=== PATIENT | male | born 1960 | race Hispanic/Latino ===

== ENCOUNTER 2017-10-01 16:52 | Inpatient (IN) | payer MEDICARE ==
[~2017-10-01] VITALS: Ht 165.1 cm; Wt 45.1 kg
[~2017-10-01 16:52] MED LIST: ACET1TAB12 PO; BISM525O75 PO; CALCIUM PO; CEPH500B PO; CLIN300C9 PO; DOCU100C19 PO; DULA0.75 SQ; FOLI0.8T2 PO; FOLI0.8T22 PO; GENTLESORB IRON PO; LACT1CAP72 PO; LISI-613 PO; OMEP20CA10 PO; ONDA4TAB9 PO; PREG75 PO; PROP10TA10 PO; SEVE800T7 PO; SIMV5TAB6 PO
[2017-10-01] MEDS ORDERED: CEFEPIME HCL 1 GM VIAL ONE (18:23)
[2017-10-01] MEDS ORDERED: ACETAMINOPHEN 325 MG TAB ONE (18:23)
[2017-10-01] MEDS ORDERED: SODIUM CHLORIDE 0.9% 50 ML IV ONE (18:24)
[2017-10-01 18:27] LABS: HEMATOCRIT 35.5 % (42-54); MEAN CORPUSCULAR HEMOGLOBIN 31.8 pg (27.0-33.0); MEAN CORPUSCULAR HGB CONC 32.1 g/dL (32.0-36.0); PLATELET COUNT (AUTO) 68 K/uL (130-400); RED BLOOD CELL COUNT(AUTO) 3.59 MIL/uL (4.50-6.20)
[2017-10-01 18:40] LABS: CREATININE 7.6 mg/dL (0.5-1.5); POTASSIUM 5.2 mmol/L (3.5-5.1)
[2017-10-01 18:46] LABS: ALBUMIN 3.3 g/dL (3.5-5.0); BILIRUBIN,DIRECT 0.2 mg/dL (0.0-0.3); BILIRUBIN,TOTAL 0.6 mg/dL (0.2-1.0); TOTAL PROTEIN, SERUM 7.5 g/dL (6.0-8.3)
[2017-10-01 19:18] LABS: EOSINOPHILS % (MANUAL) 3 % (1-6); LYMPHOCYTES % (MANUAL) 13 % (22-44); MAN.DIFF COMMENT-IMPRESSION MANUAL DIFFERENTIAL; MONOCYTES % (MANUAL) 8 % (2-9); SEGMENTED NEUTROPHILS % 76 % (40-70)
[2017-10-01] MEDS ORDERED: VANCOMYCIN 1GM+NS 250ML 250 ML IV ONE (19:23)
[2017-10-01 21:28] VITALS: BP 145/69
[2017-10-01] MEDS ORDERED: SODIUM CHLORIDE 0.9% 10 ML VIAL IVP PRN (21:30)
[2017-10-01 23:26] VITALS: BP 151/75
[2017-10-02 03:00] VITALS: BP 141/70
[2017-10-02 05:24] LABS: HEMATOCRIT 35.8 % (42-54); MEAN CORPUSCULAR HEMOGLOBIN 32.2 pg (27.0-33.0); MEAN CORPUSCULAR HGB CONC 32.6 g/dL (32.0-36.0); MEAN CORPUSCULAR VOLUME 98.5 fL (79-99); NUCLEATED RED BLOOD CELLS 0.1 % (0.0-0.19); PLATELET COUNT (AUTO) 75 K/uL (130-400); RED BLOOD CELL COUNT(AUTO) 3.64 MIL/uL (4.50-6.20); RED CELL DISTRIBUTION WIDTH 18.2 % (11.0-15.5); WHITE BLOOD COUNT (AUTO) 4.2 K/uL (4.8-10.8)
[2017-10-02 05:40] LABS: POTASSIUM 5.1 mmol/L (3.5-5.1)
[2017-10-02 05:58] LABS: CREATININE 8.2 mg/dL (0.5-1.5)
[2017-10-02] MEDS ORDERED: CEFEPIME HCL 1 GM VIAL ONE (06:22)
[2017-10-02 08:00] VITALS: BP 142/77
[2017-10-02] MEDS ORDERED: CLON0.3T PO (08:32)
[2017-10-02] MEDS ORDERED: HYDR-4153 PO (08:32)
[2017-10-02] MEDS ORDERED: FAMO-136 PO (08:32)
[2017-10-02] MEDS ORDERED: AMLO5TAB2 PO (08:32)
[2017-10-02] MEDS ORDERED: PRAV10TA39 PO (08:32)
[2017-10-02] MEDS ORDERED: CITA10TA7 PO (08:32)
[2017-10-02] MEDS ORDERED: SERT50TA PO (08:32)
[2017-10-02 12:00] VITALS: BP 126/68
[2017-10-02] MEDS ORDERED: SODIUM CHLORIDE 0.9% 1000ML 1,000 ML IV PRN (13:15)
[2017-10-02] MEDS ORDERED: 0.9% SODIUM CHLORIDE 250 ML IV BAG IV PRN (13:15)
[2017-10-02] MEDS ORDERED: ALBUMIN (HUMAN) 25% 100 ML IV PRN (13:15)
[2017-10-02] MEDS: PROPRANOLOL HCL 10 MG TAB PO SCH ×2 (14:18→21:25)
[2017-10-02 16:00] VITALS: BP 177/86
[2017-10-02] MEDS: SEVELAMER HCL 800 MG TABLET PO SCH (16:51)
[2017-10-02 19:14] VITALS: BP 158/80
[2017-10-02] MEDS ORDERED: FAMOTIDINE 20MG TAB 20 MG TAB PO SCH (21:00)
[2017-10-02] MEDS: PANTOPRAZOLE SODIUM 40 MG TABLET.DR PO SCH (21:25)
[2017-10-02 23:11] VITALS: BP 176/81
[2017-10-03] VITALS (9 sets, daily range): BP systolic 147–170; BP diastolic 70–81
[2017-10-03] MEDS ORDERED: DEXTROSE 50%-WATER 50 ML DISP.SYRIN IV PRN (04:15)
[2017-10-03] MEDS ORDERED: GLUCAGON 1MG KIT 1 MG ML IM PRN (04:15)
[2017-10-03 05:38] LABS: HEMATOCRIT 38.1 % (42-54); MEAN CORPUSCULAR HEMOGLOBIN 32.3 pg (27.0-33.0); MEAN CORPUSCULAR HGB CONC 32.9 g/dL (32.0-36.0); MEAN CORPUSCULAR VOLUME 98.3 fL (79-99); NUCLEATED RED BLOOD CELLS 0.2 % (0.0-0.19); PLATELET COUNT (AUTO) 71 K/uL (130-400); RED BLOOD CELL COUNT(AUTO) 3.88 MIL/uL (4.50-6.20); RED CELL DISTRIBUTION WIDTH 18.2 % (11.0-15.5); WHITE BLOOD COUNT (AUTO) 4.3 K/uL (4.8-10.8)
[2017-10-03 05:52] LABS: CREATININE 6.5 mg/dL (0.5-1.5); POTASSIUM 4.6 mmol/L (3.5-5.1)
[2017-10-03] MEDS ORDERED: INSULIN HUMULIN R 100 UNIT/ML 3ML SQ SCH (07:30)
[2017-10-03] MEDS: PROPRANOLOL HCL 10 MG TAB PO SCH ×3 (07:46→21:11)
[2017-10-03] MEDS: SEVELAMER HCL 800 MG TABLET PO SCH ×3 (07:46→16:33)
[2017-10-03] MEDS: PANTOPRAZOLE SODIUM 40 MG TABLET.DR PO SCH ×2 (07:46→21:11)
[2017-10-03] MEDS: CITALOPRAM 20 MG TABLET PO SCH (07:56)
[2017-10-03] MEDS: LISINOPRIL 20 MG TABLET PO SCH (07:56)
[2017-10-03] MEDS: FOLIC ACID/VITAMIN B COMP W-C 1 MG CAPSULE PO SCH ×3 (08:56→21:11)
[2017-10-03] MEDS: **HM** PRAVASTATIN 10MG PO SCH (08:56)
[2017-10-03] MEDS: AMLODIPINE BESYLATE 5 MG TAB PO SCH (08:56)
[2017-10-03] MEDS: ACETAMINOPHEN-CODEINE 300/30MG TAB PO PRN ×2 (15:01→21:11)
[2017-10-03] MEDS ORDERED: ONDANSETRON HCL MDV 20ML 2 MG/ML VIAL IVP PRN (21:30)
[2017-10-04] MEDS ORDERED: GUAIFENESIN-DM 200/20 MG 10 ML PO PRN (01:30)
[2017-10-04] MEDS ORDERED: CLONIDINE HCL 0.1 MG TABLET PO PRN (01:30)
[2017-10-04] MEDS ORDERED: DIPHENHYDRAMINE HCL 25 MG CAPSULE PO PRN (01:30)
[2017-10-04] MEDS ORDERED: ZOLPIDEM TARTRATE 5 MG TAB PO PRN (01:30)
[2017-10-04] MEDS ORDERED: NITROGLYCERIN 0.4 MG SL TAB SL PRN (01:30)
[2017-10-04] MEDS ORDERED: ACETAMINOPHEN 325 MG TAB PO PRN (01:30)
[2017-10-04] MEDS ORDERED: ONDANSETRON HCL MDV 20ML 2 MG/ML VIAL IVP PRN (01:45)
[2017-10-04] MEDS ORDERED: VANCOMYCIN PROTOCOL PER PHARMACY IV SCH (01:45)
[2017-10-04] MEDS ORDERED: PHARMACY COMMUNICATION MISC SCH (01:45)
[2017-10-04] MEDS ORDERED: CEFEPIME 1GM+NS 50ML 50 ML IV SCH (03:00)
[2017-10-04] MEDS ORDERED: CEFEPIME HCL 1 GM VIAL ONE (03:16)
[2017-10-04 03:17] VITALS: BP 144/71
[2017-10-04 03:20] VITALS: BP 126/68
[2017-10-04 03:22] VITALS: BP 115/65
[2017-10-04] MEDS ORDERED: COMPOUND IV REFRIGERATED 1 EACH IVSOLN MISC PRN (06:45)
[2017-10-04] MEDS ORDERED: VANCOMYCIN 750MG + NS 250 ML IV SCH ×2 (06:45)
[2017-10-04 07:53] VITALS: BP 152/71
[2017-10-04] MEDS: ONDANSETRON 4 MG TABLET PO SCH ×2 (08:15→17:13)
[2017-10-04] MEDS: LISINOPRIL 20 MG TABLET PO SCH (08:29)
[2017-10-04] MEDS: CITALOPRAM 20 MG TABLET PO SCH (08:29)
[2017-10-04] MEDS: AMLODIPINE BESYLATE 5 MG TAB PO SCH (08:29)
[2017-10-04] MEDS: FOLIC ACID/VITAMIN B COMP W-C 1 MG CAPSULE PO SCH ×2 (08:29→14:50)
[2017-10-04] MEDS: PANTOPRAZOLE SODIUM 40 MG TABLET.DR PO SCH (08:29)
[2017-10-04] MEDS: PROPRANOLOL HCL 10 MG TAB PO SCH ×2 (08:29→14:50)
[2017-10-04] MEDS: SEVELAMER HCL 800 MG TABLET PO SCH ×3 (08:29→17:12)
[2017-10-04] MEDS: **HM** PRAVASTATIN 10MG PO SCH (08:36)
[2017-10-04] MEDS ORDERED: FAMOTIDINE 20MG TAB 20 MG TAB PO SCH (09:00)
[2017-10-04] MEDS ORDERED: ONDANSETRON HCL 4 MG/2 ML VIAL IVP PRN (12:00)
[2017-10-04 12:24] VITALS: BP 150/71
[2017-10-04] MEDS ORDERED: CEFEPIME HCL 1 GM VIAL IVP SCH (15:00)
[2017-10-04 17:04] VITALS: BP 158/76
[2017-10-05] MEDS ORDERED: VANCOMYCIN 1GM+NS 250ML 250 ML IV SCH (14:00)
== END 2017-10-04 19:45 | DRG 871 ==
LOC: EDH 16:52 → EDHIP 16:53 → OBSVTOIN 16:53 → 3CH 20:12
PROVIDERS: ADMIT Internal Medicine; ATTEND Internal Medicine
PROC: 5A1D70Z Performance of Urinary Filtration, Intermittent, Less than 6 Hours Per Day (ICD-10-PCS; principal; 2017-10-02)
DX: A41.9 Sepsis, unspecified organism (principal); N18.6 End stage renal disease; I12.0 Hypertensive chronic kidney disease with stage 5 chronic kidney disease or end stage renal disease; D64.9 Anemia, unspecified; E11.22 Type 2 diabetes mellitus with diabetic chronic kidney disease; E78.5 Hyperlipidemia, unspecified; I95.1 Orthostatic hypotension; K74.60 Unspecified cirrhosis of liver; Z99.2 Dependence on renal dialysis; F03.90 Unspecified dementia, unspecified severity, without behavioral disturbance, psychotic disturbance, mood disturbance, and anxiety; K21.9 Gastro-esophageal reflux disease without esophagitis
CPT/HCPCS: 36415; 71045; 80048; 80053; 80076; 82948; 85025; 85027; 87040; 87088; 90935; A4218; J0692; J2405; J3370; Q0162

== ENCOUNTER 2019-10-13 13:02 | Inpatient (IN) | payer MEDICARE ==
[~2019-10-13] VITALS: Ht 162.6 cm; Wt 43.5 kg
[2019-10-13] MEDS ORDERED: EPINEPHRINE 0.1 MG/ML 10 ML SYG IVP ONE (15:14)
[2019-10-13] MEDS ORDERED: AMIODARONE HCL 50 MG/ML 3 ML VIAL IVP ONE (15:14)
[2019-10-13] MEDS ORDERED: LIDOCAINE 2G/250ML 250 ML IV ONE (15:14)
[2019-10-13] MEDS ORDERED: NOREPINEPHRINE BITARTRATE 1 MG/1 ML ML IV ONE (15:14)
[2019-10-13] MEDS ORDERED: ONDANSETRON HCL 4 MG/2 ML VIAL ONE ×2 (17:01→19:11)
[2019-10-13] MEDS ORDERED: CEFTRIAXONE SODIUM 1 GM ONE (17:01)
[2019-10-13] MEDS ORDERED: SODIUM CHLORIDE 0.9% 50 ML IV ONE (17:03)
[2019-10-13] MEDS ORDERED: SODIUM BICARB 50MEQ 50ML VIAL IV SCH (18:00)
[2019-10-13 18:10] VITALS: PULSE 77; RESP 18
[2019-10-13] MEDS ORDERED: SODIUM BICARB 50MEQ 50ML VIAL ONE (18:17)
[2019-10-14 02:55] VITALS: PULSE 74; RESP 18
[2019-10-14 07:44] VITALS: PULSE 77; RESP 20
[2019-10-14] MEDS ORDERED: CLONIDINE HCL 0.3 MG TABLET PO PRN (10:15)
[2019-10-14] MEDS ORDERED: DOCUSATE SODIUM 100 MG CAP PO PRN (10:15)
[2019-10-14] MEDS: ONDANSETRON 4 MG TABLET PO SCH (10:15)
[2019-10-14] MEDS ORDERED: ZOLPIDEM TARTRATE 5 MG TAB PO PRN (10:30)
[2019-10-14] MEDS ORDERED: HYDRALAZINE HCL 20 MG/ML VIAL IV PRN (10:30)
[2019-10-14] MEDS ORDERED: BISMUTH SUBSALICYLATE 525 MG/15 ML ML PO PRN (10:30)
[2019-10-14] MEDS: CALCIUM ACETATE 667 MG CAPSULE PO SCH (12:00)
[2019-10-14] MEDS: SEVELAMER HCL 800 MG TABLET PO SCH (12:00)
[2019-10-14] MEDS ORDERED: HYDRALAZINE HCL 20 MG/ML VIAL ONE (12:02)
[2019-10-14] MEDS ORDERED: ONDANSETRON HCL 4 MG/2 ML VIAL ONE (12:21)
[2019-10-14] MEDS ORDERED: NON-FORMULARY MEDICATION 1 EACH (Folic Acid/Vitamin B Comp W-C (Rena-Vite Tablet) 0.8 MG) PO SCH (14:00)
[2019-10-14] MEDS: PROPRANOLOL HCL 10 MG TAB PO SCH ×2 (14:00→21:00)
[2019-10-14] MEDS: CEFEPIME HCL 1 GM VIAL IVP SCH (14:15)
[2019-10-14] MEDS: DEXAMETHASONE SOD PHOSPHATE 4 MG/ML 1ML VIAL IVP SCH (14:15)
--- NOTE | 2019-10-14 14:58 | NUR ---
INITIAL SW spoke with patient's daughter, Mora Sims, [phone]. Patient lives with daughter and grandkids. He has no home health but does have PH[facility] with [facility] X 37 hours a week. Daughter is provider. DME: walker, shower chair, wheelchair, hospital bed, glucometer (uses insulin), O2 concentrator/portable. O2 is thru [facility]. Patient needs help with ADL's and doesn't drive. PCP is Dr. Francisco Javier Shaw. Pharmacy is [facility] in [place]. DCP is home. Patient's daughter stated that she is waiting to be tested for COVID 19 because she works with another patient who had family members who were positive for the virus. Patient's daughter states she and her 7 year old daughter are experiencing symptoms. Addendum: 10/14/19 at 1503 by LEANDRA IYER SS Amended: Links added.
[2019-10-14] MEDS ORDERED: EPOETIN ALFA 10,000 UNIT/ML VIAL SQ NR (15:15)
[2019-10-14] MEDS ORDERED: CEFEPIME HCL 1 GM VIAL ONE (16:02)
[2019-10-14] MEDS ORDERED: DOXYCYCLINE HYCLATE 100 MG TABLET PO ONE (16:02)
[2019-10-14] MEDS ORDERED: DEXAMETHASONE 4 MG TAB ONE (16:03)
[2019-10-14] MEDS ORDERED: DEXTROSE 50%-WATER 50 ML DISP.SYRIN IV ONE (16:44)
[2019-10-14] MEDS: HYDRALAZINE HCL 25 MG TABLET PO SCH (17:00)
[2019-10-14] MEDS ORDERED: DEXAMETHASONE SOD PHOSPHATE 10MG/ML 1ML VIAL ONE (17:46)
[2019-10-14 18:30] VITALS: PULSE 81; RESP 14
[2019-10-14] MEDS ORDERED: HYDRALAZINE HCL 25 MG TABLET ONE (18:54)
[2019-10-14] MEDS: FAMOTIDINE 20MG TAB 20 MG TAB PO SCH (21:00)
[2019-10-14] MEDS ORDERED: HEPARIN SODIUM 5000UNIT/ML 1ML VIAL ONE (22:07)
[2019-10-14] MEDS ORDERED: SIMVASTATIN 10 MG TABLET ONE (22:07)
[2019-10-14] MEDS ORDERED: FAMOTIDINE/PF 20 MG/2 ML VIAL IV ONE (22:08)
[2019-10-14] MEDS ORDERED: PREGABALIN 75 MG CAPSULE ONE (22:08)
[2019-10-14] MEDS ORDERED: SERTRALINE HCL 50 MG TABLET ONE (22:08)
[2019-10-14] MEDS ORDERED: ACETAMINOPHEN 325 MG TAB ONE (22:57)
[2019-10-15 01:37] VITALS: PULSE 79; RESP 14
[2019-10-15] MEDS ORDERED: AMLODIPINE BESYLATE 5 MG TAB PO SCH (09:00)
[2019-10-15] MEDS ORDERED: LISINOPRIL 20 MG TABLET PO SCH (09:00)
[2019-10-15] MEDS: PROPRANOLOL HCL 10 MG TAB PO SCH ×3 (09:00→21:00)
[2019-10-15] MEDS: FOLIC ACID/VITAMIN B COMP W-C 1 CAP TAB PO SCH (09:00)
[2019-10-15] MEDS: LACTOBACILLUS RHAMNOSUS GG 1 EACH CAP.SPRINK PO SCH (09:00)
[2019-10-15] MEDS: [UNRECOGNIZED DRUG - OTHER] PO SCH (09:00)
[2019-10-15] MEDS: CITALOPRAM 20 MG TABLET PO SCH (09:00)
[2019-10-15] MEDS ORDERED: AMLODIPINE BESYLATE 5 MG TAB ONE (09:21)
[2019-10-15] MEDS ORDERED: PREGABALIN 75 MG CAPSULE ONE ×2 (09:22→21:36)
[2019-10-15] MEDS ORDERED: CEFEPIME HCL 1 GM VIAL ONE ×2 (16:31→17:06)
[2019-10-15] MEDS ORDERED: DOXYCYCLINE HYCLATE 100 MG TABLET PO ONE (16:36)
[2019-10-15] MEDS ORDERED: DEXAMETHASONE SOD PHOSPHATE 4 MG/ML 1ML VIAL ONE ×2 (17:06→18:17)
[2019-10-15] MEDS ORDERED: ONDANSETRON 4 MG TABLET ONE (18:00)
[2019-10-15 19:15] VITALS: PULSE 70; RESP 14
[2019-10-15] MEDS: SERTRALINE HCL 50 MG TABLET PO SCH (21:00)
[2019-10-15] MEDS: FAMOTIDINE 20MG TAB 20 MG TAB PO SCH (21:00)
[2019-10-15] MEDS: SIMVASTATIN 10 MG TABLET PO SCH (21:00)
[2019-10-15] MEDS ORDERED: SIMVASTATIN 10 MG TABLET ONE (21:35)
[2019-10-15] MEDS ORDERED: HYDRALAZINE HCL 25 MG TABLET ONE (21:35)
[2019-10-15] MEDS ORDERED: FAMOTIDINE/PF 20 MG/2 ML VIAL IV ONE (21:36)
[2019-10-15] MEDS ORDERED: SERTRALINE HCL 50 MG TABLET ONE (21:36)
[2019-10-16] MEDS ORDERED: DOXYCYCLINE HYCLATE 100 MG TABLET PO ONE ×2 (04:06→15:41)
[2019-10-16] MEDS ORDERED: SODIUM POLYSTYRENE SULFONATE 15 GM/60 ML ML RC SCH (07:45)
[2019-10-16 09:00] VITALS: PULSE 78; RESP 14
[2019-10-16] MEDS: HEPARIN SODIUM 5000UNIT/ML 1ML VIAL SQ SCH ×2 (09:00→21:00)
[2019-10-16] MEDS: [UNRECOGNIZED DRUG - OTHER] PO SCH (09:00)
[2019-10-16] MEDS: PROPRANOLOL HCL 10 MG TAB PO SCH ×3 (09:00→21:00)
[2019-10-16] MEDS: LACTOBACILLUS RHAMNOSUS GG 1 EACH CAP.SPRINK PO SCH (09:00)
[2019-10-16] MEDS: FOLIC ACID/VITAMIN B COMP W-C 1 CAP TAB PO SCH (09:00)
[2019-10-16] MEDS: CITALOPRAM 20 MG TABLET PO SCH (09:00)
[2019-10-16] MEDS ORDERED: SODIUM POLYSTYRENE SULFONATE 15 GM/60 ML ML ONE (09:14)
[2019-10-16] MEDS ORDERED: HYDRALAZINE HCL 25 MG TABLET ONE (09:14)
[2019-10-16] MEDS ORDERED: ONDANSETRON 4 MG TABLET ONE (09:14)
[2019-10-16] MEDS ORDERED: ATORVASTATIN CALCIUM 10 MG TABLET ONE (09:14)
[2019-10-16] MEDS ORDERED: LISINOPRIL 5 MG TABLET ONE (09:15)
[2019-10-16] MEDS ORDERED: CALCIUM ACETATE 667 MG CAPSULE PO ONE ×3 (09:15→16:15)
[2019-10-16] MEDS ORDERED: AMLODIPINE BESYLATE 5 MG TAB ONE (09:15)
[2019-10-16] MEDS ORDERED: SEVELAMER HCL 800 MG TABLET ONE ×3 (09:15→16:15)
[2019-10-16] MEDS ORDERED: PREGABALIN 75 MG CAPSULE ONE (09:16)
[2019-10-16] MEDS: HYDRALAZINE HCL 25 MG TABLET PO SCH ×2 (09:24→17:00)
[2019-10-16] MEDS: ATORVASTATIN CALCIUM 10 MG TABLET PO SCH (09:24)
[2019-10-16] MEDS: ONDANSETRON 4 MG TABLET PO SCH ×2 (09:25→18:15)
[2019-10-16] MEDS: SEVELAMER HCL 800 MG TABLET PO SCH ×3 (09:25→17:00)
[2019-10-16] MEDS: CALCIUM ACETATE 667 MG CAPSULE PO SCH ×3 (09:25→17:00)
[2019-10-16] MEDS: DOXYCYCLINE HYCLATE 100 MG TABLET PO SCH ×2 (09:25→21:00)
[2019-10-16] MEDS: PREGABALIN 75 MG CAPSULE PO SCH ×2 (09:25→21:00)
[2019-10-16] MEDS ORDERED: CEFEPIME HCL 1 GM VIAL ONE (15:40)
[2019-10-16] MEDS: CEFEPIME HCL 1 GM VIAL IVP SCH (15:54)
[2019-10-16] MEDS ORDERED: DEXAMETHASONE SOD PHOSPHATE 4 MG/ML 1ML VIAL ONE (16:17)
[2019-10-16] MEDS: DEXAMETHASONE SOD PHOSPHATE 4 MG/ML 1ML VIAL IVP SCH (16:30)
[2019-10-16] MEDS ORDERED: SODIUM BICARB 50MEQ 50ML VIAL ONE (17:30)
[2019-10-16 20:00] VITALS: BP 138/61
[2019-10-16] MEDS: SERTRALINE HCL 50 MG TABLET PO SCH ×2 (21:00→21:41)
[2019-10-16] MEDS: SIMVASTATIN 10 MG TABLET PO SCH ×2 (21:00→21:41)
[2019-10-16] MEDS: FAMOTIDINE 20MG TAB 20 MG TAB PO SCH (21:00)
[2019-10-16] MEDS ORDERED: SERTRALINE HCL 50 MG TABLET ONE (21:39)
[2019-10-16] MEDS ORDERED: FAMOTIDINE/PF 20 MG/2 ML VIAL IV ONE (21:39)
[2019-10-16] MEDS ORDERED: SIMVASTATIN 10 MG TABLET ONE (21:39)
--- NOTE | 2019-10-16 23:50 | NUR ---
GAVE REPORT TO 2 FLOOR NURSE PT TRANSFERRED ON NRB MASK AT 10 L ITERS PT DENIES SOB WITH IT, DENIES CHEST PAIN AWARE OF PT'S LATEST CXR RESULTS AND BENCHMARKS'S ORDERS
[2019-10-17] VITALS (120 sets, daily range): BP systolic 60–193; BP diastolic 41–91; PULSE 78–135; RESP 5–137; TEMP 98.7–100.4
--- NOTE | 2019-10-17 00:05 | NUR ---
ADMISSION PATIENT ARRIVED VIA STRETCHER TO ROOM 231. BREATHING REGULAR, ON 100% NON REBREATHER. PATIENT ORIENTED TO SELF AND TIME, REORIENTED TO PLACE AND SITUATION. PATIENT DENIES PAIN. VERBALIZES NAUSEA. PATIENT HEAVING WITH NO EMESIS. PATIENT DENIES SOB O2 SATURATION 87%. HFNC ORDERED. NO SETUP AVAILABLE. ORIENTED TO ROOM. DISCUSSED PLAN OF CARE. PUT GOWN ON PATIENT AND POSITIONED TO COMFORT WITH HOB ELEVATED. CALL LIGHT IN REACH.
[2019-10-17] MEDS: ONDANSETRON 4 MG TABLET PO SCH ×3 (01:16→17:28)
[2019-10-17] MEDS ORDERED: SODIUM CHLORIDE 0.9% 1000ML 1,000 ML IV ONE (02:15)
[2019-10-17] MEDS ORDERED: NOREPINEPHRINE 4MG/NS 250ML 250 ML IV ONE ×3 (02:15→12:05)
[2019-10-17] MEDS ORDERED: DOPAMINE 800MG/D5 250ML 250 ML IV ONE (02:32)
--- NOTE | 2019-10-17 03:00 | NUR ---
CODE BLUE 0200 PATIENT VERBALIZED NAUSEA AGAIN. EMESIS BAG GIVEN. HEAVING WITH NO EMESIS. PATIENT REMAINS ON 100% NON REBREATHER. 0207 CALL RECEIVED FROM MT PATIENT HEART RATE IN 30'S 208 PATIENT UNRESPONSIVE. PATIENT NOT BREATHING. NO CHEST RISE VISIBLE. CODE BLUE CALLED. PLEASE REFER TO CODE SHEET
--- NOTE | 2019-10-17 04:00 | NUR ---
STATUS PATIENT NOW INTUBATED. CHEST TUBE PLACED AT THE BEDSIDE BY DR BELTRAN. PATIENT TRANSFERRED TO ICU VIA BED. NOREPINEPHRINE AND DOPAMINE INFUSING.
[2019-10-17] MEDS ORDERED: FENTANYL CITRATE PF 50 MCG/1 ML 2ML VIAL IVP STA (04:24)
[2019-10-17] MEDS ORDERED: FENTANYL CITRATE PF 0.05 MG/ML 1,000 MCG in SODIUM CHLORIDE 0.9% 100 ML IVPB SCH (04:30)
[2019-10-17] MEDS: ARTIFICIAL TEARS 3.5 GM OINTMENT OU SCH ×4 (04:30→22:38)
[2019-10-17] MEDS ORDERED: LIDOCAINE HCL 1% 20 ML VIAL ONE (04:47)
[2019-10-17] MEDS ORDERED: FENTANYL CITRATE PF 50 MCG/1 ML 2ML VIAL ONE (04:51)
[2019-10-17] MEDS ORDERED: FENTANYL 1000MCG+NS 100ML 100 ML ONE ×2 (05:14→20:42)
--- NOTE | 2019-10-17 05:20 | NUR ---
FAMILY CALLED DAUGHTER DAMION BUENO. UPDATED ON RECENT EVENTS, CODE AND PATIENT CONDITION. PROVIDED WITH ICU PHONE NUMBER AND INFORMED THAT MANHOLE STRIPPER AT THE BEDSIDE AND WILL BE PROVIDED UPDATES BY PRIMARY NURSE,
[2019-10-17] MEDS: HYDRALAZINE HCL 25 MG TABLET PO SCH ×2 (08:00→14:10)
[2019-10-17] MEDS: [UNRECOGNIZED DRUG - OTHER] PO SCH (08:37)
[2019-10-17] MEDS: PREGABALIN 75 MG CAPSULE PO SCH ×2 (09:05→21:00)
[2019-10-17] MEDS: DOXYCYCLINE HYCLATE 100 MG TABLET PO SCH ×2 (09:05→21:56)
[2019-10-17] MEDS: LACTOBACILLUS RHAMNOSUS GG 1 EACH CAP.SPRINK PO SCH (09:05)
[2019-10-17] MEDS: ATORVASTATIN CALCIUM 10 MG TABLET PO SCH (09:05)
[2019-10-17] MEDS: PANTOPRAZOLE 40 MG/VIAL IVP SCH (09:06)
[2019-10-17] MEDS: CITALOPRAM 20 MG TABLET PO SCH (09:06)
[2019-10-17] MEDS: FOLIC ACID/VITAMIN B COMP W-C 1 CAP TAB PO SCH (09:06)
[2019-10-17] MEDS: SEVELAMER HCL 800 MG TABLET PO SCH ×3 (09:07→17:26)
[2019-10-17] MEDS: CALCIUM ACETATE 667 MG CAPSULE PO SCH ×3 (09:07→17:26)
[2019-10-17] MEDS: HEPARIN SODIUM 5000UNIT/ML 1ML VIAL SQ SCH ×2 (09:12→22:03)
[2019-10-17] MEDS: CHLORHEXIDINE GLUCONATE 473 ML MOUTHWASH MM SCH ×2 (10:59→21:56)
[2019-10-17] MEDS: MIDAZOLAM HCL 50 MG in SODIUM CHLORIDE 0.9% 50 ML IV SCH ×2 (11:27→22:08)
[2019-10-17] MEDS: NOREPINEPHRINE BITARTRATE 32 MG in SODIUM CHLORIDE 0.9% 250 ML IV SCH (14:00)
[2019-10-17] MEDS: DEXAMETHASONE SOD PHOSPHATE 4 MG/ML 1ML VIAL IVP SCH (14:15)
[2019-10-17] MEDS: CEFEPIME HCL 1 GM VIAL IVP SCH (14:15)
[2019-10-17] MEDS: PHENYLEPHRINE HCL 100 MG in SODIUM CHLORIDE 0.9% 250 ML IV SCH (17:26)
[2019-10-17] MEDS ORDERED: ACETAMINOPHEN ELIXIR 650 MG/20.3 ML UDCUP ONE (17:38)
[2019-10-17] MEDS ORDERED: DEXTROSE 50%-WATER 50 ML DISP.SYRIN IV ONE (17:38)
[2019-10-17] MEDS ORDERED: ACETAMINOPHEN ELIXIR 650 MG/20.3 ML UDCUP NG PRN (18:00)
[2019-10-17] MEDS ORDERED: INSULIN HUMULIN R 100 UNIT/ML 3ML SQ SCH (18:00)
[2019-10-17] MEDS: INSULIN HUMULIN R 100 UNIT/ML 3ML SQ SCH ×3 (18:00→22:00)
[2019-10-17] MEDS ORDERED: DEXTROSE 50%-WATER 25 GM/50 ML VIAL IV SCH (18:00)
[2019-10-17] MEDS ORDERED: DEXTROSE 10%-WATER 1,000 ML IV ONE (18:01)
[2019-10-17] MEDS: SODIUM CHLORIDE 23.4% 30ML VL 154 MEQ in DEXTROSE 10%-WATER 961.5 ML IV SCH (19:00)
[2019-10-17] MEDS ORDERED: DEXTROSE 10%-WATER 1,000 ML IV SCH (19:00)
[2019-10-17] MEDS ORDERED: COMPOUND IV REFRIGERATED 1 EACH IVSOLN MISC PRN (19:15)
[2019-10-17] MEDS ORDERED: VANCOMYCIN PROTOCOL PER PHARMACY IV SCH (19:15)
[2019-10-17] MEDS ORDERED: VANCOMYCIN 750MG + NS 250 ML IV SCH (20:00)
--- NOTE | 2019-10-17 20:00 | NUR ---
ASSESSMENT PT INTUBATED, SEDATED, ETT 8, AC/22/80%/450/ PEEP 5. LEFT CHEST TUBE TO 20 CM SUCTION WITH AIR LEAK AND RIGHT CHEST TUBE TO 20CM SUCTION WITH AIR LEAK, IV FLUIDS INFUSING WITHOUT DIFFICULTY TO LEFT FEMORAL 7 FR CENTRAL LINE. ASSESSMENT COMPLETED, SEE FLOW SHEET
[2019-10-17] MEDS: FAMOTIDINE 20MG TAB 20 MG TAB PO SCH (21:00)
[2019-10-17] MEDS: DEXAMETHASONE SOD PHOSPHATE 10MG/ML 1ML VIAL IVP SCH (21:55)
[2019-10-17] MEDS: SIMVASTATIN 10 MG TABLET PO SCH (21:56)
[2019-10-18] VITALS (71 sets, daily range): BP systolic 84–143; BP diastolic 44–84; PULSE 64–129; RESP 22–23; TEMP 97.6–98.4
[2019-10-18] MEDS: INSULIN HUMULIN R 100 UNIT/ML 3ML SQ SCH ×12 (02:00→22:00)
[2019-10-18] MEDS: ONDANSETRON 4 MG TABLET PO SCH ×3 (02:15→16:14)
[2019-10-18] MEDS: ARTIFICIAL TEARS 3.5 GM OINTMENT OU SCH ×4 (04:46→21:24)
--- NOTE | 2019-10-18 06:25 | NUR ---
DUTCH ALFARO DERRICK [employer] ANSWERING SERVICE FOR [facility]MARK CALLED RE: AM LABS/ABG. RETURN CALL PENDING
[2019-10-18] MEDS: CALCIUM ACETATE 667 MG CAPSULE PO SCH ×3 (08:21→16:14)
[2019-10-18] MEDS: DOXYCYCLINE HYCLATE 100 MG TABLET PO SCH ×2 (08:21→21:23)
[2019-10-18] MEDS: SEVELAMER HCL 800 MG TABLET PO SCH ×3 (08:21→16:14)
[2019-10-18] MEDS: ATORVASTATIN CALCIUM 10 MG TABLET PO SCH (08:21)
[2019-10-18] MEDS: FOLIC ACID/VITAMIN B COMP W-C 1 CAP TAB PO SCH (08:21)
[2019-10-18] MEDS: PREGABALIN 75 MG CAPSULE PO SCH ×2 (08:21→21:00)
[2019-10-18] MEDS: CITALOPRAM 20 MG TABLET PO SCH (08:22)
[2019-10-18] MEDS: CHLORHEXIDINE GLUCONATE 473 ML MOUTHWASH MM SCH ×2 (08:22→21:24)
[2019-10-18] MEDS: HEPARIN SODIUM 5000UNIT/ML 1ML VIAL SQ SCH ×2 (09:00→21:22)
[2019-10-18] MEDS: [UNRECOGNIZED DRUG - OTHER] PO SCH (09:00)
[2019-10-18] MEDS ORDERED: SODIUM BICARB 50MEQ 50ML VIAL IV SCH (10:45)
[2019-10-18] MEDS ORDERED: SODIUM CHLORIDE 0.9% 250 ML IV ONE (10:52)
[2019-10-18] MEDS ORDERED: SODIUM BICARB 50MEQ 50ML VIAL ONE (10:52)
[2019-10-18] MEDS: PANTOPRAZOLE 40 MG/VIAL IVP SCH (10:57)
--- NOTE | 2019-10-18 11:44 | NUR ---
RD NOTIFICATION - TUBE FEEDING Recommend Continuous Tube Feeding Pivot 1.5 @30mls/hr (1080kcal, 68gm protein) Flush 85mls Q6hrs. Recommendations faxed to ext [phone], RN notified. NUTRITION NOTE: Pt acute respiratory failure, COVID-19 PNA. Pt malnourished and underweight (BMI 16.5). Pt is s/p cardiac arrest, Intubated, OGT in place. Pt receiving hemodialysis. RD to continue to monitor. Please notify as additional nutrition concerns arise. Thank you. Addendum: 10/18/19 at [address] Amended: Links added.
[2019-10-18] MEDS: CEFEPIME HCL 1 GM VIAL IVP SCH (14:08)
[2019-10-18] MEDS: LACTOBACILLUS RHAMNOSUS GG 1 EACH CAP.SPRINK PO SCH (14:09)
[2019-10-18] MEDS: SODIUM CHLORIDE 23.4% 30ML VL 154 MEQ in DEXTROSE 10%-WATER 961.5 ML IV SCH (15:49)
[2019-10-18] MEDS: NOREPINEPHRINE BITARTRATE 32 MG in SODIUM CHLORIDE 0.9% 250 ML IV SCH (16:07)
--- NOTE | 2019-10-18 20:00 | NUR ---
ASSESSMENT PT INTUBATED, SEDATED, ETT 8, AC/22/50%/450/ PEEP 5. LEFT CHEST TUBE TO 20 CM SUCTION WITH AIR LEAK AND RIGHT CHEST TUBE TO 20CM SUCTION WITH AIR LEAK. IV FLUIDS INFUSING WITHOUT DIFFICULTY TO LEFT FEMORAL 7 FR CENTRAL LINE. ASSESSMENT COMPLETED, SEE FLOW SHEET
[2019-10-18] MEDS: FAMOTIDINE 20MG TAB 20 MG TAB PO SCH (21:00)
--- NOTE | 2019-10-18 21:00 | NUR ---
FAMILY CALLED DAUGHTER DAMION CALLED, STATUS UP-DATE GIVEN
[2019-10-18] MEDS: DEXAMETHASONE SOD PHOSPHATE 10MG/ML 1ML VIAL IVP SCH (21:20)
[2019-10-18] MEDS: SIMVASTATIN 10 MG TABLET PO SCH (21:23)
[2019-10-18] MEDS: PHENYLEPHRINE HCL 100 MG in SODIUM CHLORIDE 0.9% 250 ML IV SCH (21:58)
--- NOTE | 2019-10-18 23:31 | NUR ---
MEDS LYRICA NOT GIVEN, PT RECEIVING SEDATION. PEPCID NOT AVAILABLE
--- NOTE | 2019-10-18 23:36 | NUR ---
RIGHT CHEST ATRIUM CHANGED
[2019-10-19] VITALS (36 sets, daily range): BP systolic 44–136; BP diastolic 29–77; PULSE 55–120; RESP 15–23; TEMP 97.6–99.1
[2019-10-19] MEDS: INSULIN HUMULIN R 100 UNIT/ML 3ML SQ SCH ×7 (02:00→11:46)
[2019-10-19] MEDS: ONDANSETRON 4 MG TABLET PO SCH ×2 (02:15→07:44)
[2019-10-19] MEDS: ARTIFICIAL TEARS 3.5 GM OINTMENT OU SCH ×2 (04:29→07:44)
[2019-10-19] MEDS: DOXYCYCLINE HYCLATE 100 MG TABLET PO SCH (07:41)
[2019-10-19] MEDS: CALCIUM ACETATE 667 MG CAPSULE PO SCH ×2 (07:41→11:14)
[2019-10-19] MEDS: SEVELAMER HCL 800 MG TABLET PO SCH ×2 (07:41→11:14)
[2019-10-19] MEDS: FOLIC ACID/VITAMIN B COMP W-C 1 CAP TAB PO SCH (07:41)
[2019-10-19] MEDS: LACTOBACILLUS RHAMNOSUS GG 1 EACH CAP.SPRINK PO SCH (07:41)
[2019-10-19] MEDS: PREGABALIN 75 MG CAPSULE PO SCH (07:42)
[2019-10-19] MEDS: ATORVASTATIN CALCIUM 10 MG TABLET PO SCH (07:42)
[2019-10-19] MEDS: CITALOPRAM 20 MG TABLET PO SCH (07:42)
[2019-10-19] MEDS: CHLORHEXIDINE GLUCONATE 473 ML MOUTHWASH MM SCH (07:44)
[2019-10-19] MEDS: HEPARIN SODIUM 5000UNIT/ML 1ML VIAL SQ SCH (07:44)
[2019-10-19] MEDS ORDERED: DEXTROSE 50%-WATER 50 ML DISP.SYRIN IV ONE (08:09)
[2019-10-19] MEDS: [UNRECOGNIZED DRUG - OTHER] PO SCH (08:29)
[2019-10-19] MEDS: SODIUM CHLORIDE 23.4% 30ML VL 154 MEQ in DEXTROSE 10%-WATER 961.5 ML IV SCH (11:12)
[2019-10-19] MEDS: PANTOPRAZOLE 40 MG/VIAL IVP SCH (11:14)
--- NOTE | 2019-10-19 12:40 | NUR ---
PATIENT RECEIVING DIALYSIS. PATIENT STILL CONTINUES HIS HEART RATE OF SINUS TACHY WITH FREQUENT PAC'S. PATIENTS BLOOD PRESSURE HAS ALSO DROPPED SYSTOLIC 40S, DIALYSIS STOPPED. INCREASED PRESSOR IV DRIPS AND GAVE ALBUMIN. PATIENT IS A DNR.
[2019-10-19] MEDS ORDERED: ALBUMIN (HUMAN) 5% 250 ML IV ONE (13:07)
--- NOTE | 2019-10-19 13:36 | NUR ---
PATIENT TIME OF 1336. DR. MERIDA AWARE. DR. CALDERON AWARE.
--- NOTE | 2019-10-19 13:40 | NUR ---
PATIENT DAUGHTER DAMION BUENO DOES NOT ANSWER HER PHONE. LEFT HER A BRIEF MESSAGE ABOUT HER FATHERS CHANGE IN STATUS.
--- NOTE | 2019-10-19 14:23 | NUR ---
WAS ABLE TO CONTACT DAMION BUENO (DAUGHTER). INFORMED HER ABOUT TIME OF . GAVE PATIENT INFORMATION ABOUT WHAT COMES NEXT. FINDING A HOME AND CONTACTING THE HOSPITAL.
--- NOTE | 2019-10-19 15:30 | NUR ---
RD FOLLOW UP Tube feeding recommendations not previously received, per RN. Re-faxed 10/19/19 12:25PM. Recs received. Pt with elevated potassium levels, abnormal renal labs. Hemodialysis in place. NPO x [address] to continue to monitor. Please notify as additional nutrition concerns arise. Thank you.
[2019-10-19] MEDS ORDERED: INSULIN HUMULIN R 100 UNIT/ML 3ML SQ SCH (16:00)
[2019-10-19] MEDS ORDERED: CHLORHEXIDINE GLUCONATE 473 ML MOUTHWASH MM SCH (21:00)
== END 2019-10-19 13:36 | disposition expired | DRG 871 ==
LOC: EDH 13:02 → EDHIP 17:16 → OBSVTOIN 17:16 → 2AH 10-17 → 2CH 10-17 02:22
PROVIDERS: ADMIT Internal Medicine Critical Care Medicine; ATTEND Internal Medicine Critical Care Medicine
PROC: 5A1D70Z Performance of Urinary Filtration, Intermittent, Less than 6 Hours Per Day (ICD-10-PCS; 2019-10-14)
PROC: 5A1D70Z Performance of Urinary Filtration, Intermittent, Less than 6 Hours Per Day (ICD-10-PCS; 2019-10-16)
PROC: 5A1945Z Respiratory Ventilation, 24-96 Consecutive Hours (ICD-10-PCS; principal; 2019-10-17)
PROC: 5A1D70Z Performance of Urinary Filtration, Intermittent, Less than 6 Hours Per Day (ICD-10-PCS; 2019-10-17)
PROC: 5A12012 Performance of Cardiac Output, Single, Manual (ICD-10-PCS; 2019-10-17)
PROC: 0BH17EZ Insertion of Endotracheal Airway into Trachea, Via Natural or Artificial Opening (ICD-10-PCS; 2019-10-17)
PROC: 30233K1 Transfusion of Nonautologous Frozen Plasma into Peripheral Vein, Percutaneous Approach (ICD-10-PCS; 2019-10-18)
PROC: 0W993ZZ Drainage of Right Pleural Cavity, Percutaneous Approach (ICD-10-PCS; 2019-10-18)
PROC: 04HL33Z Insertion of Infusion Device into Left Femoral Artery, Percutaneous Approach (ICD-10-PCS; 2019-10-18)
PROC: 0W9B00Z Drainage of Left Pleural Cavity with Drainage Device, Open Approach (ICD-10-PCS; 2019-10-18)
PROC: 5A1D70Z Performance of Urinary Filtration, Intermittent, Less than 6 Hours Per Day (ICD-10-PCS; 2019-10-19)
DX: A41.9 Sepsis, unspecified organism (principal); U07.1 COVID-19; N18.6 End stage renal disease; J96.01 Acute respiratory failure with hypoxia; R65.21 Severe sepsis with septic shock; J18.9 Pneumonia, unspecified organism; J90 Pleural effusion, not elsewhere classified; I12.0 Hypertensive chronic kidney disease with stage 5 chronic kidney disease or end stage renal disease; R18.8 Other ascites; Z66 Do not resuscitate; I46.9 Cardiac arrest, cause unspecified; D63.8 Anemia in other chronic diseases classified elsewhere; D69.6 Thrombocytopenia, unspecified; E11.22 Type 2 diabetes mellitus with diabetic chronic kidney disease; K74.60 Unspecified cirrhosis of liver; E11.51 Type 2 diabetes mellitus with diabetic peripheral angiopathy without gangrene; E87.70 Fluid overload, unspecified; F03.90 Unspecified dementia, unspecified severity, without behavioral disturbance, psychotic disturbance, mood disturbance, and anxiety; I25.10 Atherosclerotic heart disease of native coronary artery without angina pectoris; I35.0 Nonrheumatic aortic (valve) stenosis; K21.9 Gastro-esophageal reflux disease without esophagitis; M48.061 Spinal stenosis, lumbar region without neurogenic claudication; Z99.2 Dependence on renal dialysis; Z79.899 Other long term (current) drug therapy; Z91.11 Patient's noncompliance with dietary regimen; Z91.19 Patient's noncompliance with other medical treatment and regimen